=== PATIENT | male | born 1980 | race American Indian/Alaskan Native ===

== ENCOUNTER 2019-07-10 21:58 | Emergency (ER) | payer BC ==
[2019-07-10] MEDS ORDERED: hydrALAZINE 25 MG TAB PO ONE (22:20)
--- NOTE | 2019-07-10 22:21 | Emergency Department Report ---
ED General Adult HPI - General Chief complaint: High BP Stated complaint: HIGH BP Source: patient Mode of arrival: Ambulatory Limitations: No Limitations - History of Present Illness Initial comments: Patient is a 39-year-old [place] male with a history of hypertension but is noncompliant with medication presents to the ED repositioned and elevated blood pressure last 1 week, worse in the last 12 hours. Patient states that the last time he took his blood pressure medications was about 2 years ago and that he is unable to remember the name of the medication that he was taking. Patient states that he has not had any symptoms but was prompted by his mother to check his blood pressure home when he noticed that his blood pressure was reading 214/110. Patient states that he then went to the fire department and the blood pressure was again checked and it was still significantly elevated after which he was advised by the fire department to come to the ED for evaluation. Patient denies chest pain, shortness of breath, headache, dizziness, change in vision, abdominal pain, syncope, diaphoresis, palpitations, seizures, nausea and vomiting or cough. MD Complaint: elevated BP -: Gradual, month(s) (12) Location: head Radiation: non-radiation Severity scale (0 -10): 0 Consistency: constant Improves with: none Worsens with: none Associated Symptoms: denies other symptoms. denies: chest pain, cough, diaphoresis, fever/chills, headaches, loss of appetite, malaise, nausea/vomiting, seizure, shortness of breath, syncope, weakness Treatments Prior to Arrival: none - Related Data Previous Rx's Medication Instructions Recorded Last Taken Type Lisinopril/Hydrochlorothiazide 1 tab PO QDAY #30 tab 07/11/19 Unknown Rx [Zestoretic 20-25 mg] Allergies Allergy/AdvReac Type Severity Reaction Status Date / Time No Known Allergies Allergy Unverified 07/10/19 22:17 ED Review of Systems ROS: Stated complaint: HIGH BP Other details as noted in HPI Constitutional: other (elevated blood pressure). denies: chills, fever Eyes: denies: eye pain, eye discharge, vision change ENT: denies: ear pain, throat pain Respiratory: denies: cough, shortness of breath, wheezing Cardiovascular: denies: chest pain, palpitations Endocrine: no symptoms reported Gastrointestinal: denies: abdominal pain, nausea, diarrhea Genitourinary: denies: urgency, dysuria Musculoskeletal: denies: back pain, joint swelling, arthralgia Skin: denies: rash, lesions Neurological: denies: headache, weakness, paresthesias Psychiatric: denies: anxiety, depression Hematological/Lymphatic: denies: easy bleeding, easy bruising ED Past Medical Hx - Past Medical History Hx Hypertension: Yes - Social History Smoking Status: Never Smoker Substance Use Type: Alcohol - Medications Home Medications: Home Medications Medication Instructions Recorded Confirmed Last Taken Type Lisinopril/Hydrochlorothiazide 1 tab PO QDAY #30 tab 07/11/19 Unknown Rx [Zestoretic 20-25 mg] ED Physical Exam - General Limitations: No Limitations General appearance: alert, in no apparent distress - Head Head exam: Present: atraumatic, normocephalic - Eye Eye exam: Present: normal appearance, PERRL, EOMI Pupils: Present: normal accommodation - ENT ENT exam: Present: normal exam, normal orophraynx, mucous membranes moist, TM's normal bilaterally, normal external ear exam - Neck Neck exam: Present: normal inspection, full ROM. Absent: tenderness - Respiratory Respiratory exam: Present: normal lung sounds bilaterally. Absent: respiratory distress, wheezes, rales, stridor, chest wall tenderness, decreased breath sounds, prolonged expiratory - Cardiovascular Cardiovascular Exam: Present: regular rate, normal rhythm, normal heart sounds. Absent: systolic murmur, diastolic murmur, rubs, gallop - GI/Abdominal GI/Abdominal exam: Present: soft, normal bowel sounds. Absent: tenderness, guarding, hyperactive bowel sounds, hypoactive bowel sounds - Extremities Exam Extremities exam: Present: normal inspection, full ROM, normal capillary refill - Back Exam Back exam: Present: normal inspection, full ROM. Absent: tenderness, CVA tenderness (R), CVA tenderness (L), muscle spasm, paraspinal tenderness, vertebral tenderness - Neurological Exam Neurological exam: Present: alert, oriented X3, CN II-XII intact, normal gait, reflexes normal - Psychiatric Psychiatric exam: Present: normal affect, normal mood - Skin Skin exam: Present: warm, dry, intact, normal color. Absent: rash ED Course Vital Signs 07/10/19 07/10/19 07/10/19 22:05 22:19 22:50 Temperature 98.6 F Pulse Rate 86 80 Respiratory 20 Rate Blood Pressure 215/124 171/101 Blood Pressure 177/112 [Left] Blood Pressure [Right] O2 Sat by Pulse 99 Oximetry 07/11/19 00:18 Temperature Pulse Rate 78 Respiratory 16 Rate Blood Pressure Blood Pressure 185/99 [Left] Blood Pressure 199/108 [Right] O2 Sat by Pulse 99 Oximetry ED Medical Decision Making - Medical Decision Making This is a 39-year-old male who presented to the ED with persistently elevated blood pressure for which he is worse in the last 1 week, and was noncompliant with medications. In the ED, patient is alert and oriented 3 and is in no acute distress. Patient's initial blood pressure in triage was measured at 215/124, and repeat vital signs after about one hour showed blood pressure of 171/101. Patient was treated in the ED with hydralazine 25 mg by mouth 1. On reevaluation, patient's blood pressure improved and the patient will discharged home on new blood pressure medications, lisinopril. HCTZ 20/12.5 milligrams daily and was given a referral to [facility] for follow-up of his blood pressure. Patient was advised to return to the ED immediately if symptoms get worse. - Differential Diagnosis Hypertension; Anxiety Critical care attestation.: If time is entered above; I have spent that time in minutes in the direct care of this critically ill patient, excluding procedure time. ED Disposition Clinical Impression: Uncontrolled stage 2 hypertension Disposition: DC-01 TO HOME OR SELFCARE Is pt being admited?: No Does the pt Need Aspirin: No Condition: Stable Instructions: Hypertension (ED) Additional Instructions: Take medications with food, drink plenty of fluids and follow up with your primary care physician 7-10 days for reevaluation. Return to the ED immediately if symptoms get worse. Prescriptions: Lisinopril/Hydrochlorothiazide [Zestoretic 20-25 mg] 1 tab PO QDAY #30 tab Referrals: [facility] [Outside] - 7-10 days Time of Disposition: 00:17 Print Language: ESTONIAN
[2019-07-11 00:20] VITALS: BP 185/99
== END 2019-07-11 00:35 | disposition home or self-care (01) ==
LOC: ED 21:58
DX: I10 Essential (primary) hypertension (principal)
CPT/HCPCS: 99282